=== PATIENT | female | born 1975 | race Caucasian/White ===

== ENCOUNTER 2022-04-18 06:20 | Day surgery (SDC) | payer MEDICAID ==
[~2022-04-18] VITALS: Ht 154.9 cm; Wt 40.8 kg
[2022-04-18] MEDS ORDERED: SIMETHICONE 40 MG/0.6 ML ML ONE (06:24)
[2022-04-18] MEDS ORDERED: MIDAZOLAM HCL 5 MG/5 ML VIAL ONE ×2 (06:25→08:52)
[2022-04-18] MEDS ORDERED: MEPERIDINE 100 MG INJ. 100 MG/ML VIAL ONE ×2 (06:25→08:52)
[2022-04-18] MEDS ORDERED: LIDOCAINE 2% JELLY UROJECT 10 ML MM ONE (08:39)
[2022-04-18 13:03] VITALS: BP_SYST 103
== END 2022-04-18 10:40 | disposition home or self-care (01) ==
LOC: SDS 06:20 → SMU 06:21 → SDS 10:40
PROVIDERS: ATTEND Internal Medicine Gastroenterology
DX: D50.9 Iron deficiency anemia, unspecified (principal); K64.8 Other hemorrhoids; Z98.84 Bariatric surgery status; K62.5 Hemorrhage of anus and rectum; K62.7 Radiation proctitis; Z79.899 Other long term (current) drug therapy; Z20.822 Contact with and (suspected) exposure to COVID-19
CPT/HCPCS: 36415; 43239; 45378; 88305; 88312; 88313; 99152; 99153; G0378; J2175; J2250; U0003